=== PATIENT | female | born 1930 | race Caucasian/White ===

== ENCOUNTER 2019-06-13 17:01 | Emergency (ER) | payer OTHER ==
[2019-06-13] MEDS ORDERED: EPINEPHrine 1 MG/10 ML SYR IV ONE (17:02)
[2019-06-13] MEDS ORDERED: SODIUM CHL 0.9% 1000 ML BAG IV ONE (17:02)
[2019-06-13] MEDS ORDERED: Caclcium Chloride 10% INJ SYR IV ONE (17:02)
[2019-06-13] MEDS ORDERED: AMIODARONE HCL 150 MG/3 ML INJ IV ONE (17:02)
--- NOTE | 2019-06-13 18:59 | EDPHYS ---
Physician Documentation [facility] Name: Ana Devi Age: 88 yrs Sex: Female : 1930 Arrival Date: 06/13/2019 Time: 17:03 Bed 1 Private MD: ED Physician John Telles HPI: 06/13 18:51 This 88 yrs old Female presents to ER via EMS with complaints of CPR. jr8 18:51 Preceding the arrest, the patient collapsed. The arrest occurred at alf. jr8 Pre-hospital course: The arrest was witnessed by EMS. EMS care prior to arrival: initiation of ACLS, peripheral IV, was successfully placed. intubation was successfully performed, orally, using a 7.5 ET tube. oxygen, by BVM to assist ventilations. 100% by ET tube. ACLS details: Initial rhythm was PEA. The presenting rhythm is PEA. Airway: oral intubation, Medications given by EMS prior to arrival - Epinephrine IV x 4 doses, Response to therapy: continued arrest. The patient has not experienced similar symptoms in the past. The patient has not recently seen a physician. 18:54 EMS initially called out for lift assist at [place]. Stated that she was found on floor with jr8 head under the bed. Stated that she was confused but could initially answer questions. [facility]. Patient went unconscious and then lost pulse shortly after. Historical: - Allergies: 17:49 Unable to obtain; tw2 - Home Meds: 17:49 Unable to obtain [Active]; tw2 - PMHx: 17:49 Unable to obtain; tw2 - PSHx: 17:49 Unable to obtain; tw2 - Immunization history:: Adult Immunizations. - Social history:: Smoking status: . - Ebola Screening: : Patient denies travel to an Ebola-affected area in the 21 days before illness onset. ROS: 18:54 Unable to obtain ROS due to patient distress. jr8 Exam: 18:54 Eyes: Pupils size 4 bilaterally. Fixed. Lids and lashes normal. Conjunctiva and jr8 sclera are non-icteric and not injected. Periorbital areas with no swelling, redness, or edema. ENT: Nares patent. No nasal discharge, no septal abnormalities noted. Oropharynx with no redness, swelling, or masses, exudates, or evidence of obstruction, uvula midline. Mucous membranes moist. Cardiovascular: Patient with HR of 100 via CPR Respiratory: Patient being mechanically ventilated. Crackles bilaterally. Equal breath sounds with normal chest rise and fall present Abdomen/GI: Soft with destention present. No bruising or other signs of trauma noted Skin: cool, pale in appearance Vital Signs: 17:07 BP 108 / 57; Resp 16 A; Pulse Ox 100% on ETT ambu; tw2 17:57 Weight 70.31 kg; Height 5 ft. 2 in. (157.48 cm); tw2 17:57 Body Mass Index 28.35 (70.31 kg, 157.48 cm) tw2 MDM: 17:17 Patient medically screened. jr8 18:50 Data reviewed: vital signs, nurses notes, EKG. jr8 18:54 ED course: ACLS initiated and continued for over an hour. ROSC achieved briefly twice jr8 in that course of time. After last pulse family was brought in to determine patients best wishes as to whether or not they wanted us to continue CPR. Family decided that enough was done and to let her rest at this time. CPR stopped and patient pronounced at 17:17. 0805 17:50 Order name: glucometer results - FOR PT WITH NO ID; Complete Time: 20:25 tw2 06/13 18:26 Order name: EKG Electrocardiogram EDMS Administered Medications: Discontinued: NS 0.9% 1000 ml IV at 1000 ml once 17:02 Drug: EPINEPHrine 0.1mg/mL 1:10,000 1 mg Route: IVP; Site: left wrist; tw2 17:40 Follow up: Response: No adverse reaction; No change in condition tw2 17:03 Drug: Sodium Bicarbonate 1 amp Route: IVP; Site: left hand; tw2 17:40 Follow up: Response: No adverse reaction; No change in condition tw2 17:05 Drug: NS 0.9% 1000 ml Route: IV; Rate: 1000 ml; Site: left hand; tw2 17:08 Drug: amiodarone 300 mg Route: IVP; Site: left hand; tw2 17:40 Follow up: Response: No adverse reaction; No change in condition tw2 17:11 Drug: EPINEPHrine 0.1mg/mL 1:10,000 1 mg Route: IVP; Site: left hand; tw2 17:40 Follow up: Response: No adverse reaction tw2 17:38 CANCELLED (Duplicate Order): amiodarone 150 mg 100 ml IVPB once over 10 mins; (mix in tw2 D5W) 17:40 Not Given (Patient ): amiodarone 900 mg, D5W 500 ml IVPB at 1 mg/min continuous; tw2 for 6 hrs, then change to 0.5 mg/min Point of Care Testing: Blood Glucose: 17:04 Blood Glucose: 167 mg/dL; tw2 Ranges: Critical Glucose Levels:Adult <50 mg/dl or >400 mg/dl <40 mg/dl or >180 mg/dl Disposition: 18:50 . jr8 19:03 Critical Care:. jr8 06/14 07:59 Co-signature as Attending Physician, John Telles MD I agree with the assessment and ks plan of care. Disposition: Patient pronounced on 06/13/19 17:17 by Balaji Trammell. Impression: Cardiac arrest. - Released to Home. Critical care time excluding procedures: 06/13 19:03 Critical care time: Bedside Care: 15 minutes, Family Intervention: 15 minutes. Total jr8 time: 30 minutes Signatures: Dispatcher [employer] Nancy Rizzo RN RN bb Fariba Crockett RN RN Balaji Trammell PA PA jr8 Susie Connor RN RN tw2 John Telles MD MD ks Corrections: (The following items were deleted from the chart) 17:38 17:07 amiodarone 150 mg 100 ml IVPB once over 10 mins; (mix in D5W) ordered. tw 21:35 18:50 06/13/2019 18:50 Patient pronounced on 06/13/2019 at 17:17 by Balaji Trammell. bb Impression: Cardiac arrest. Released to Home. jr8
--- NOTE | 2019-06-13 18:59 | ER ---
Nurse's Notes [facility] Name: Ana Devi Age: 88 yrs Sex: Female : 1930 Arrival Date: 06/13/2019 Time: 17:03 Bed 1 Private MD: Diagnosis: Cardiac arrest Presentation: 06/13 16:56 Presenting complaint: EMS states: call was for lift assist as pt fell and had her head tw2 under the bed, vs normal, she was able to answer, she ambulated to the stretcher, then started grunting, became apneic and had blood at her mouth, hr 30s, then no pulse, PEA on monitor, monisha applied for CPR, 7.5 ET tube 25 at teeth, IO to LEFT lower leg infiltrated, IO to right lower leg, 20 g left hand, bgl 145. Transition of care: patient was not received from another setting of care. Onset of symptoms was June 13, 2019. Risk Assessment: Do you want to hurt yourself or someone else? Patient reports no desire to harm self or others. Initial Sepsis Screen: Does the patient meet any 2 criteria? No. Patient's initial sepsis screen is negative. Does the patient have a suspected source of infection? No. Patient's initial sepsis screen is negative. Care prior to arrival: CPR via thumper Medication(s) given: Epi x4, and 75 meq of Sodium bicarb IV initiated. 20 GA, in the left hand, Glucose check: 145 Oxygen administered. via AMBU bag. 16:56 Method Of Arrival: EMS: [facility] tw2 16:56 Acuity: DARLIN 1 tw2 16:56 Compressions began prior to arrival. tw2 16:56 Presenting complaint: EMS states: pt also defecated on herself. tw2 Triage Assessment: 16:56 Pain: Unable to use pain scale. tw2 16:56 General: Appears cpr in progress. tw2 Historical: - Allergies: 17:49 Unable to obtain; tw2 - Home Meds: 17:49 Unable to obtain [Active]; tw2 - PMHx: 17:49 Unable to obtain; tw2 - PSHx: 17:49 Unable to obtain; tw2 - Immunization history:: Adult Immunizations. - Social history:: Smoking status: . - Ebola Screening: : Patient denies travel to an Ebola-affected area in the 21 days before illness onset. Screenin:41 Abuse screen:. Nutritional screening: No deficits noted. Tuberculosis screening: No tw2 symptoms or risk factors identified. Fall Risk Secondary diagnosis (15 points) impaired mobility. Assessment: 16:56 General: Behavior is unresponsive. Neuro: Level of Consciousness is unresponsive. tw2 Cardiovascular: Rhythm is PEA. Respiratory: Airway via oral intubation. GI: Abdomen is round distended. 16:57 CPR assessment: unresponsive, intubated, Ambu ventilation, cyanotic. Cardiac rhythm is tw2 PEA. 16:57 Reassessment: RT at bedside to assist with ventilation at this time. tw2 17:04 Reassessment: pulse check, femoral pulse palpable by JOSETTE Mcdonald. tw2 17:06 Reassessment: pt in Vfib at this time, shock delivered at 200 dayanna, CPR resumed. tw2 17:07 Reassessment: CPR paused, pulse check, pulse at 81. tw2 17:10 Reassessment: no palpable pulse, CPR continued. tw2 17:13 Reassessment: PEA on monitor, CPR continued. Reassessment: 14f OG tube placed by tw2 SOHAIL Melendez, verified with auscultation. 17:17 Reassessment: pts daughter at bedside at this time, her wishes were to stop all care at tw2 this point, pts daughter states "she wouldn't want this", JOSETTE Mcdonald verified with pt and Dr. Telles at bedside at this time, asystole verified by monitor and life pack at this time. 18:39 Reassessment: Per Judge Macdonald, authorized to discontinue ET tube and OG tube at this tw2 time. Vital Signs: 17:07 BP 108 / 57; Resp 16 A; Pulse Ox 100% on ETT ambu; tw2 17:57 Weight 70.31 kg; Height 5 ft. 2 in. (157.48 cm); tw2 17:57 Body Mass Index 28.35 (70.31 kg, 157.48 cm) tw2 ED Course: 16:56 Bed in low position. electronic device monitor on. Pulse ox on. NIBP on. pt placed on [employer] tw2 pads. 16:56 Maintain EMS IV. Dressing intact. Good blood return noted. Site clean \\T\\ dry. Gauge \\T\\ tw 2 site: 20 g left hand. 17:03 Patient arrived in ED. ag5 17:11 Susie Cononr, RN is Primary Nurse. tw2 17:17 Balaji Trammell PA is PHCP. jr8 17:17 John Telles MD is Attending Physician. jr8 17:33 Triage completed. tw2 17:33 Arm band placed on. tw2 17:55 No provider procedures requiring assistance completed. tw2 18:16 EKG done, by it support technician. reviewed by Balaji FINCH. sm3 18:50 Balaji Trammell PA is Pronouncing Provider. jr8 Administered Medications: Discontinued: NS 0.9% 1000 ml IV at 1000 ml once 17:02 Drug: EPINEPHrine 0.1mg/mL 1:10,000 1 mg Route: IVP; Site: left wrist; tw2 17:40 Follow up: Response: No adverse reaction; No change in condition tw2 17:03 Drug: Sodium Bicarbonate 1 amp Route: IVP; Site: left hand; tw2 17:40 Follow up: Response: No adverse reaction; No change in condition tw2 17:05 Drug: NS 0.9% 1000 ml Route: IV; Rate: 1000 ml; Site: left hand; tw2 17:08 Drug: amiodarone 300 mg Route: IVP; Site: left hand; tw2 17:40 Follow up: Response: No adverse reaction; No change in condition tw2 17:11 Drug: EPINEPHrine 0.1mg/mL 1:10,000 1 mg Route: IVP; Site: left hand; tw2 17:40 Follow up: Response: No adverse reaction tw2 17:38 CANCELLED (Duplicate Order): amiodarone 150 mg 100 ml IVPB once over 10 mins; (mix in tw2 D5W) 17:40 Not Given (Patient ): amiodarone 900 mg, D5W 500 ml IVPB at 1 mg/min continuous; tw2 for 6 hrs, then change to 0.5 mg/min Point of Care Testing: Blood Glucose: 17:04 Blood Glucose: 167 mg/dL; tw2 Ranges: Outcome: 17:17 Outcome Patient tw2 17:17 Patient : Time of 17:17 Pronounced by Balaji FINCH tw2 17:17 critical 21:35 Patient left the ED. bb Signatures: Nancy Eckert RN RN bb Balaji Trammell PA PA jr8 Susie Connor RN RN tw2 Lillie Lucas 3 Carlitos Colby 5 Corrections: (The following items were deleted from the chart) 18:40 18:39 Reassessment: Per Judge Macdonald, authorized to discontinue ET tube and OG tube at tw2 this time. tw2
--- NOTE | 2019-06-14 07:37 | EKG ---
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
== END 2019-06-13 21:35 | disposition expired ==
LOC: SUPCPDRO 17:01 → ER 17:01
PROC: 5A02210 Assistance with Cardiac Output using Balloon Pump, Continuous (ICD-10-PCS; principal; 2019-06-13)
DX: I46.9 Cardiac arrest, cause unspecified (principal)
CPT/HCPCS: 93005; 36415; 82962; 92950; J0282; J0171; J7030; 99285; J7060